=== PATIENT | female | born 1930 | race Caucasian/White ===

== ENCOUNTER 2018-04-05 22:31 | Observation (INO) ==
[2018-04-05] MEDS ORDERED: Morphine Inj 4 MG/ML Vial IV.PUSH ONE (22:34)
[2018-04-05 22:51] LABS: Baso % (Auto) 0.5 % (0.0-2.0); Eos # (Auto) 0.2 th/mm3 (0.0-0.4); Eos % (Auto) 2.5 % (0.0-4.0); Hematocrit 42.7 % (35.0-46.0); Hemoglobin 14.1 gm/dL (11.6-15.3); Lymph % (Auto) 14.8 % (9.0-44.0); Mean Corpuscular Hemoglobin 29.4 pg (27.0-34.0); Mono # (Auto) 0.6 th/mm3 (0.0-0.9); Mono % (Auto) 9.7 % (0.0-8.0); Neut # (Auto) 4.7 th/mm3 (1.8-7.7); Neut % (Auto) 72.5 % (16.0-70.0); Platelet Count 171 th/mm3 (150-450); Red Blood Count 4.79 mil/mm3 (4.00-5.30); Red Cell Distribution Width 12.6 % (11.6-17.2); White Blood Count 6.5 th/mm3 (4.0-11.0)
--- NOTE | 2018-04-05 22:52 | ED ---
HPI General Chief Complaint: Chest Pain Stated Complaint: Chest Pain Time Seen by Provider: 04/05/18 22:34 Source: patient Mode of arrival: ambulatory Limitations: no limitations History of Present Illness HPI narrative: Patient states that her primary care doctor is Dr. galdino shearer, utilization management rn is fernie. Patient stated that she has been feeling poorly most of the day, including lightheadedness, along with a nonradiating left chest sided pressure. Per patient she denies ever having a stent. She believes that she may have had a cardiac cath about 5-6 years ago but she is unsure. MD complaint: chest pain Complete Quality Measures for STEMI Alert Patients STEMI Alert: No Onset (ago): hour(s) (8) Duration: intermittent Onset: during rest Pain location: left chest Severity: moderate Severity scale (1-10): 5 Quality: tightness Pain radiation: none Relieving factors: nothing Exacerbating factors: nothing Associated symptoms: other (Lightheadedness) Treatments prior to arrival chest pain: aspirin Related Data On Oral Contraceptives: No Allergies Allergy/AdvReac Type Severity Reaction Status Date / Time No Known Allergies Allergy Unknown Uncoded 12/06/17 14:55 Review of Systems Except as stated in HPI: all other systems reviewed are negative PMFSH History History Provided By: Patient Medical History Medical History Hip fracture, left (Acute) Patient denies medical problems (Acute) Social History Social History Recent Travel in [facility] within the Last 8 Weeks: No Recent Out of Country Travel within the Last 8 Weeks: No Exam Narrative Exam Narrative: GENERAL: Well-nourished, well-developed patient in no apparent distress. SKIN: Warm and dry. HEAD: Atraumatic. Normocephalic. EYES: Pupils equal and round. No scleral icterus. No injection or drainage. ENT: No nasal bleeding or discharge. Mucous membranes pink and moist. NECK: Trachea midline. No JVD. CARDIOVASCULAR: Regular rate and rhythm. no rubs or gallops RESPIRATORY: No accessory muscle use. Clear to auscultation. Breath sounds equal bilaterally. GASTROINTESTINAL: Abdomen soft, non-tender, nondistended. No rebound or guarding MUSCULOSKELETAL: Extremities without clubbing, cyanosis, or edema. No obvious deformities. NEUROLOGICAL: Awake and alert. No obvious cranial nerve deficits. Motor grossly within normal limits. Five out of 5 muscle strength in the arms and legs. Normal speech. PSYCHIATRIC: Appropriate mood and affect; insight and judgment normal. Course Initial Documented Vital Signs Temperature 98.2 F 04/05/18 22:45 Pulse Rate 95 H 04/05/18 22:45 Respiratory Rate 16 04/05/18 22:45 Blood Pressure 170/110 H 04/05/18 22:45 Pulse Oximetry 97 04/05/18 22:45 Last Documented Vital Signs Temperature 98.2 F 04/05/18 22:45 Pulse Rate 95 H 04/05/18 22:45 Respiratory Rate 16 04/05/18 22:45 Blood Pressure 170/110 H 04/05/18 22:45 Pulse Oximetry 97 04/05/18 22:45 Medical Decision Making Lab Data Result diagrams: 04/05/18 22:43 04/05/18 22:43 Lab Results 04/05/18 04/05/18 Range/Units 22:43 22:43 CBC w Diff Auto diff final WBC 6.5 (4.0-11.0) th/mm3 RBC 4.79 (4.00-5.30) mil/mm3 Hgb 14.1 (11.6-15.3) gm/dL Hct 42.7 (35.0-46.0) % MCV 89.0 (80.0-100.0) fL MCH 29.4 (27.0-34.0) pg MCHC 33.0 (32.0-36.0) % RDW 12.6 (11.6-17.2) % Plt Count 171 (150-450) th/mm3 MPV 8.0 (7.0-11.0) fL Neut % (Auto) 72.5 H (16.0-70.0) % Lymph % (Auto) 14.8 (9.0-44.0) % Spink % (Auto) 9.7 H (0.0-8.0) % Eos % (Auto) 2.5 (0.0-4.0) % Baso % (Auto) 0.5 (0.0-2.0) % Neut # (Auto) 4.7 (1.8-7.7) th/mm3 Lymph # (Auto) 1.0 (1.0-4.8) th/mm3 Spink # (Auto) 0.6 (0.0-0.9) th/mm3 Eos # (Auto) 0.2 (0.0-0.4) th/mm3 Baso # (Auto) 0.0 (0.0-0.2) th/mm3 WBC Differential . Differential Comment . Sodium 137 (136-145) meq/L Potassium 4.1 (3.5-5.1) meq/L Chloride 103 (98-107) meq/L Discharge Plan Discharge Disposition Patient Disposition: 30 Still Patient Discharge Condition Condition: Stable Discharge Details Diagnosis: Chest pain, rule out acute myocardial infarction Physicians Team ED Provider: Gavin Canela Primary Care Provider: Galdino Shearer Status ED Status: With Doctor
[2018-04-05 22:57] LABS: Chloride 103 meq/L (98-107); Potassium 4.1 meq/L (3.5-5.1); Sodium 137 meq/L (136-145)
[2018-04-05 23:01] LABS: Albumin 3.8 g/dL (3.4-5.0); Anion Gap 7 meq/L (5-15); Blood Urea Nitrogen 20 mg/dL (7-18); Carbon Dioxide 26.7 meq/L (21.0-32.0); Glucose,Random 101 mg/dL (74-106); Lipase 317 U/L (73-393)
[2018-04-05 23:03] LABS: Activated Partial Thrombo Time 23.3 sec (24.3-30.1); INR 0.9 Ratio; Prothrombin Time 9.6 sec (9.8-11.6)
[2018-04-05 23:04] LABS: Alanine Aminotransferase 27 U/L (10-53); Aspartate Aminotransferase 21 U/L (15-37); Glomerular Filtration Rate 61 mL/min (>89)
[2018-04-05 23:05] LABS: Total Protein 7.1 g/dL (6.4-8.2)
[2018-04-05 23:06] LABS: Alkaline Phosphatase 78 U/L (45-117)
--- NOTE | 2018-04-05 23:35 | CT ---
EXAM DATE: 04/05/2018 11:29 PM EDT AGE/SEX: 88 years / Female INDICATIONS: Chest pain. CLINICAL DATA: This is the patient's initial encounter. Patient reports that signs and symptoms have been present for 1 day and indicates a pain score of 4/10. MEDICAL/SURGICAL HISTORY: None. None. RADIATION DOSE: 7.20 CTDI (mGy) COMPARISON: No prior exams available for comparison. TECHNIQUE: Volumetric scanning was performed using a multi-row detector CT scanner during bolus infu german of 75 ml Omnipaque 350 (iohexol) nonionic water-soluble contrast as a single exam dose. The jaz a was post processed with a variety of visualization algorithms including full volume maximum intensi ty projection and sliding thin slab reformation. Using automated exposure control and adjustment of the mA and/or kV according to patient size, radiation dose was kept as low as reasonably achievable t o obtain optimal diagnostic quality images. DICOM format image data is available electronically for review and comparison. FINDINGS: Pulmonary Arteries: No filling defects are seen in the pulmonary arteries out to the subsegmental ve ssels. The left and right pulmonary arteries are normal in diameter. Lung: Bibasilar and right middle lobe linear scarring/atelectasis. Lungs are otherwise clear. Effusion: None. Mediastinum: No evidence of mediastinal or hilar adenopathy some athetotic calcification of the heath nary arteries. Other: The axilla is unremarkable. Benign-appearing hepatic parenchymal cysts. CONCLUSION: 1. Linear atelectasis/scarring in both lung bases and the right middle lobe. Lungs are otherwise david ar. 2. No pulmonary embolus. 3. Benign-appearing hepatic cysts. Electronically signed by: Smith Mariee MD 04/05/2018 11:33 PM EDT
[2018-04-06] MEDS ORDERED: Acetaminophen 325 MG Tablet PO PRN (00:01)
--- NOTE | 2018-04-06 00:14 | XR ---
EXAM DATE: 04/05/2018 11:39 PM EDT AGE/SEX: 88 years / Female INDICATIONS: Short of breath. CLINICAL DATA: This is the patient's initial encounter. Patient reports that signs and symptoms have been present for 1 day and indicates a pain score of 2/10. MEDICAL/SURGICAL HISTORY: None. None. COMPARISON: No prior exams available for comparison. FINDINGS: A single AP view of the chest demonstrates the lungs to be symmetrically aerated without evidence of mass, infiltrate or effusion. Heart size is borderline prominent but well compensated. Dextroscoliosi s of the dorsal spine. 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 CONCLUSION: 1. Heart size is borderline prominent but well compensated. 2. Lungs are clear. Electronically signed by: Smith Mariee MD 04/06/2018 12:13 AM EDT
[2018-04-06] MEDS ORDERED: Melatonin 5 MG Tablet PO ONE (01:53)
[2018-04-06 03:10] LABS: Creatine Kinase 80 U/L (26-192)
[2018-04-06 08:56] VITALS: BP 136/84; RESP 16; TEMP 98.8; O2SAT 96
--- NOTE | 2018-04-06 08:56 | P.HP ---
History of Present Illness Primary Care Physician: Joey Lemus MD Chief Complaint: Chest pain History of Present Illness: 88-year-old female who is in rather good condition no chronic medical illnesses who presented the hospital because of chest pain. Patient did fracture her hip a few weeks ago and she has been undergoing physical therapy at [facility]. She states that she has been working out more than she usually does. She states that last couple weeks she has been experiencing some intermittent left-sided chest discomfort located over on her left side rib cage which is worse whenever she takes a deep breath, worse with movement, reproducible on palpation. She states that the pain started after she started doing physical therapy. Patient states that the pain is a sharp stabbing pain that lasts for only couple seconds at a time that can be a 5/10 on a pain scale. She denies any nausea, vomiting, diaphoresis, radiation to the neck, back, shoulder, arm, denies any shortness of breath or dyspnea. Patient states that she does go to Dr. Conley on a regular basis. She states that he told her that she had a very good heart. She has not had any cardiac workup in a long time. Patient was evaluated emergency department is recommended by the ER physician the patient be observed for chest pain and rule out any cardiac issue. Review of Systems All other systems reviewed negative except as stated in HPI Cardiovascular: Reports chest pain PMFSH - History History Provided By: Patient - Medical History Medical History: Medical History (Last Reviewed 04/06/18 @ 08:47 by LEO Albert) Hip fracture, left Patient denies medical problems - Surgical History Surgical History: Surgical History (Last Updated 04/06/18 @ 08:47 by LEO Albert) History of cataract surgery - Family History Family History: Family History (Last Updated 04/06/18 @ 08:44 by LEO Albert) Father History of tobacco use Mother Natural - Tobacco History Second Hand Smoke Exposure: No Smoking Status: Never smoker - Alcohol History How Often Do You Have a Drink Containing Alcohol: Never - Substance Use History Substance History: No History of Abuse - Travel History Recent Travel in the [place] Within the Last 8 Weeks: No Recent Travel Out of the Country Within the Last 8 Weeks: No - Immunization History Tetanus Immunization: <5 Years Hx Influenza Vaccine This Season: Yes Medications and Allergies Active Medications: Active Medications Acetaminophen (Tylenol) 650 mg PO Q4H PRN PRN Reason: Temp > 100.4 Aspirin (Aspirin) 325 mg PO DAILY CHRISTAL Nitroglycerin (Nitrostat Sl) 0.4 mg SL Q5M PRN PRN Reason: CHEST PAIN Ondansetron HCl (Zofran Inj) 4 mg IV.PUSH Q6H PRN PRN Reason: NAUSEA OR VOMITING Sodium Chloride (Ns Flush) 2 ml IV.FLUSH UNSCH PRN PRN Reason: FLUSH AFTER USING IV ACCESS Allergies Allergy/AdvReac Type Severity Reaction Status Date / Time No Known Allergies Allergy Unknown Uncoded 12/06/17 14:55 Home Medications Medication Instructions Recorded Confirmed Type No Known Home Medications 04/05/18 04/05/18 History Exam Vital signs: Vital Signs 04/05/18 22:45 04/05/18 23:12 04/05/18 23:32 Temperature 98.2 F Pulse Rate 95 H 85 Respiratory Rate 16 16 Blood Pressure 170/110 H 151/83 H Pulse Oximetry 97 97 97 04/06/18 01:18 04/06/18 02:01 04/06/18 04:00 Temperature 96.5 F L 96.6 F L Pulse Rate 73 78 Respiratory Rate 20 20 Blood Pressure 170/81 H 131/72 Pulse Oximetry 95 99 97 Intake & Output 04/05/18 04/06/18 04/06/18 18:59 06:59 18:59 Intake Total 0 / 0 Balance 0 / 0 Weight 59.8 kg Intake: Oral 0 / 0 Other: # Voids 2 Date of Last Bowel Movement 04/05/18 Narrative: GENERAL: Well-developed, well-nourished, in no acute distress. alert and orientated HEENT: Head is normocephalic without any lesions or masses noted. Facial features are symmetric. Eyes: Pupils equal round reactive to light. Extraocular muscles are intact. Conjunctivae were clear. Oropharyngeal: Pharynx without any erythema edema. Tongue is midline without deviation. Buccal mucosa is moist without any masses or lesions NECK: Supple without any masses. Trachea midline no deviation. No JVD, no bruits are appreciated CARDIAC: Regular rhythm, regular rate. S1/S2 are heard. No murmurs gallops or rubs. Pain is reproducible on palpation when palpating along the left lateral ribs. There is no rash appreciated. LUNGS: Clear to auscultation bilaterally. No wheeze, rhonchi or rales. No use of accessory muscles on inspiration or expiration. ABDOMEN: Soft, nontender. Nondistended. Bowel sounds heard in all 4 quadrants. No organomegaly or masses. Negative rebound, negative guarding EXTREMITIES: No edema, pulses are equal bilaterally. No cyanosis or clubbing NEUROLOGY: Mood and affect appear appropriate. Cranial nerves II through XII grossly intact. Muscle strength 5/5 in upper and lower extremities bilaterally. Deep tendon reflexes are 2+ in upper and lower extremities bilaterally. Results - Labs CBC & Chem 7: 04/05/18 22:43 04/05/18 22:43 Labs: Laboratory Results - last 24 hr 04/05/18 04/05/18 04/05/18 22:43 22:43 22:43 CBC w Diff Auto diff final WBC 6.5 RBC 4.79 Hgb 14.1 Hct 42.7 MCV 89.0 MCH 29.4 MCHC 33.0 RDW 12.6 Plt Count 171 MPV 8.0 Neut % (Auto) 72.5 H Lymph % (Auto) 14.8 Franklin % (Auto) 9.7 H Eos % (Auto) 2.5 Baso % (Auto) 0.5 Neut # (Auto) 4.7 Lymph # (Auto) 1.0 Franklin # (Auto) 0.6 Eos # (Auto) 0.2 Baso # (Auto) 0.0 WBC Differential . Differential Comment . PT 9.6 L INR 0.9 APTT 23.3 L Sodium 137 Potassium 4.1 Chloride 103 Carbon Dioxide 26.7 Anion Gap 7 BUN 20 H Creatinine 0.88 Estimated GFR 61 L Random Glucose 101 Calcium 9.0 Total Bilirubin 0.9 AST 21 ALT 27 Alkaline Phosphatase 78 Total Creatine Kinase CK-MB (CK-2) CK-MB (CK-2) % Troponin I Less than 0.02 L Total Protein 7.1 Albumin 3.8 Lipase 317 04/06/18 04/06/18 01:20 01:20 CBC w Diff WBC RBC Hgb Hct MCV MCH MCHC RDW Plt Count MPV Neut % (Auto) Lymph % (Auto) Franklin % (Auto) Eos % (Auto) Baso % (Auto) Neut # (Auto) Lymph # (Auto) Franklin # (Auto) Eos # (Auto) Baso # (Auto) WBC Differential Differential Comment PT INR APTT Sodium Potassium Chloride Carbon Dioxide Anion Gap BUN Creatinine Estimated GFR Random Glucose Calcium Total Bilirubin AST ALT Alkaline Phosphatase Total Creatine Kinase Cancelled 80 CK-MB (CK-2) Cancelled CK-MB (CK-2) % Cancelled Troponin I Cancelled Less than 0.02 L Total Protein Albumin Lipase - Imaging Impressions Chest CTA 04/05/18 22:34 CONCLUSION: 1. Linear atelectasis/scarring in both lung bases and the right middle lobe. Lungs are otherwise clear. 2. No pulmonary embolus. 3. Benign-appearing hepatic cysts. Chest X-Ray 04/05/18 22:35 CONCLUSION: 1. Heart size is borderline prominent but well compensated. 2. Lungs are clear. Caprini VTE Risk Assessment Caprini VTE Risk Assessment: Moderate/High Risk (score >= 2) Caprini Risk Assessment Model: Point Value = 1 Point Value = 2 Point Value = 3 Point Value = 5 Age 41-60 Minor surgery BMI > 25 kg/m2 Swollen legs Varicose veins or History of unexplained or recurrent spontaneous Oral contraceptives or hormone replacement Sepsis (< 1 month) Serious lung disease, including pneumonia (< 1 month) Abnormal pulmonary function Acute myocardial infarction Congestive heart failure (< 1 month) History of inflammatory bowel disease Medical patient at bed rest Age 61-74 Arthroscopic surgery Major open surgery (> 45 min) Laparoscopic surgery (> 45 min) Malignancy Confined to bed (> 72 hours) Immobilizing plaster cast Central venous access Age >= 75 History of VTE Family history of VTE Factor V Leiden Prothrombin [id number] Lupus anticoagulant Anticardiolipin antibodies Elevated serum homocysteine Heparin-induced thrombocytopenia Other congenital or acquired thrombophilia Stroke (< 1 month) Elective arthroplasty Hip, pelvis, or leg fracture Acute spinal cord injury (< 1 month) Prophylaxis Regimen: Total Risk Factor Score Risk Level Prophylaxis Regimen 0-1 Low Early ambulation 2 Moderate Order ONE of the following: *Sequential Compression Device (SCD) *Heparin 5000 units SQ BID 3-4 Higher Order ONE of the following medications: *Heparin 5000 units SQ TID *Enoxaparin/Lovenox 40 mg SQ daily (WT < 150 kg, CrCl > 30 mL/min) *Enoxaparin/Lovenox 30 mg SQ daily (WT < 150 kg, CrCl > 10-29 mL/min) *Enoxaparin/Lovenox 30 mg SQ BID (WT < 150 kg, CrCl > 30 mL/min) AND/OR *Sequential Compression Device (SCD) 5 or more Highest Order ONE of the following medications: *Heparin 5000 units SQ TID (Preferred with Epidurals) *Enoxaparin/Lovenox 40 mg SQ daily (WT < 150 kg, CrCl > 30 mL/min) *Enoxaparin/Lovenox 30 mg SQ daily (WT < 150 kg, CrCl > 10-29 mL/min) *Enoxaparin/Lovenox 30 mg SQ BID (WT < 150 kg, CrCl > 30 mL/min) AND *Sequential Compression Device (SCD) Assessment and Plan - Plan Chest pain, atypical -Patient with increased risk factors include age, postmenopausal without exogenous hormones -Patient did undergo chest x-ray and pulmonary angiogram which were unremarkable for any etiology to cause her pain -Patient has been ruled out for acute coronary event with serial cardiac enzymes are negative -Serial EKGs were performed and reviewed by myself which shows sinus rhythm without any changes -Discussed with the patient that her symptoms can be related to musculoskeletal pain with her recent physical therapy because of her hip fracture. Patient does understand. Patient is still concerned about her heart. We discussed treatment plan and she wants to move forward with cardiac stress testing -Which patient got down to have the testing performed, she decided that she does not want her we cannot rule her chest pain out completely that it is not cardiac related. She does understand does not want to pursue any further testing at this time. She wants to go home. She indicates that she has any further episodes that she will contact her Planer Operator / Grader and arrange testing be done with him. -Continue aspirin, nitroglycerin as needed -Telemetry was reviewed DVT prevention -Sequential compression devices Discharge Planning: Discharge home in stable condition Activity: Ad andriy. Diet: Regular diet Medication per medication reconciliation Follow-up with primary medical doctor in 1 week
[2018-04-06 09:19] VITALS: PULSE 84
[2018-04-06 09:35] LABS: Creatine Kinase 88 U/L (26-192)
--- NOTE | 2018-04-06 18:43 | ECG ---
Date Performed: 04/06/2018 Time Performed: 01:46:36 PTAGE: 88 years EKG: Sinus rhythm NORMAL ECG PREVIOUS TRACING : 04/05/2018 22.38 Since the previous tracing, no significant change noted DOCTOR: Shelby Dewey Interpretating Date/Time 04/06/2018 18:41:29
--- NOTE | 2018-04-06 18:45 | ECG ---
Date Performed: 04/05/2018 Time Performed: 22:38:51 PTAGE: 88 years EKG: Sinus rhythm NORMAL ECG PREVIOUS TRACING : 12/30/2015 14.12 Since the previous tracing, no significant change noted DOCTOR: Shelby Dewey Interpretating Date/Time 04/06/2018 18:44:31
[2018-04-07] MEDS ORDERED: Aspirin 325 MG Tablet PO SCH
== END 2018-04-06 14:15 | disposition home or self-care (01) ==
LOC: PH3 22:31 → PHED 22:31 → PHEDA 22:31 → PH3 04-06 00:53
PROVIDERS: ADMIT Family Medicine; ATTEND Family Medicine